=== PATIENT | female | born 1945 | race Two or more races ===

== ENCOUNTER 2018-01-19 12:21 | Outpatient (CLI) | payer OTHER | END 2018-01-19 12:26 | disposition home or self-care (01) | LOC: MAMO-SONO 12:21 | DX: R92.8 Other abnormal and inconclusive findings on diagnostic imaging of breast (principal) ==

== ENCOUNTER 2018-05-17 13:52 | Outpatient (CLI) | payer OTHER | END 2018-05-17 13:59 | disposition home or self-care (01) | LOC: SONOGRAMA 13:52 | DX: E04.1 Nontoxic single thyroid nodule (principal) ==

== ENCOUNTER 2018-07-13 09:56 | Outpatient (CLI) | payer OTHER | END 2018-07-13 09:57 | disposition home or self-care (01) | LOC: SONOGRAMA 09:56 | DX: E04.1 Nontoxic single thyroid nodule (principal) ==

== ENCOUNTER → 2019-01-25 | Outpatient (CLI) | payer OTHER | END | disposition home or self-care (01) | LOC: MAMO-SONO 11:39 | DX: Z12.31 Encounter for screening mammogram for malignant neoplasm of breast (principal); Z87.898 Personal history of other specified conditions; N60.11 Diffuse cystic mastopathy of right breast; N60.12 Diffuse cystic mastopathy of left breast; E04.1 Nontoxic single thyroid nodule ==

== ENCOUNTER 2020-01-12 13:07 | Outpatient (CLI) | payer OTHER | END 2020-01-12 14:00 | disposition home or self-care (01) | LOC: MAMO-SONO 13:07 | DX: Z12.31 Encounter for screening mammogram for malignant neoplasm of breast (principal); Z87.898 Personal history of other specified conditions; N60.11 Diffuse cystic mastopathy of right breast; N60.12 Diffuse cystic mastopathy of left breast ==

== ENCOUNTER 2020-01-24 11:56 | Outpatient (CLI) | payer OTHER | END 2020-01-24 12:55 | disposition home or self-care (01) | LOC: NUCLEAR 11:56 | DX: M81.0 Age-related osteoporosis without current pathological fracture (principal) ==

== ENCOUNTER 2021-01-17 13:52 | Outpatient (CLI) | payer OTHER | END 2021-01-17 13:55 | disposition home or self-care (01) | LOC: MAMO-SONO 13:52 | PROVIDERS: ATTEND Obstetrics & Gynecology | DX: Z12.31 Encounter for screening mammogram for malignant neoplasm of breast (principal); E04.1 Nontoxic single thyroid nodule; N60.11 Diffuse cystic mastopathy of right breast; N60.12 Diffuse cystic mastopathy of left breast; N64.59 Other signs and symptoms in breast ==

== ENCOUNTER 2021-04-19 11:31 | Outpatient (CLI) | payer OTHER | END 2021-04-19 11:41 | disposition home or self-care (01) | LOC: TOM 11:31 | DX: K86.2 Cyst of pancreas (principal); K80.80 Other cholelithiasis without obstruction ==

== ENCOUNTER 2021-08-30 12:45 | Outpatient (CLI) | payer OTHER | END 2021-08-30 14:55 | disposition home or self-care (01) | LOC: RAD 12:45 | PROVIDERS: ATTEND Specialist | DX: R07.89 Other chest pain (principal); Z01.818 Encounter for other preprocedural examination ==

== ENCOUNTER 2022-01-20 10:28 | Outpatient (CLI) | payer OTHER | END 2022-01-20 11:11 | disposition home or self-care (01) | LOC: MAMO-SONO 10:28 | PROVIDERS: ATTEND Obstetrics & Gynecology | DX: N60.11 Diffuse cystic mastopathy of right breast (principal); N60.12 Diffuse cystic mastopathy of left breast ==

== ENCOUNTER 2022-02-27 13:23 | Outpatient (CLI) | payer OTHER | END 2022-02-27 13:25 | disposition home or self-care (01) | LOC: NUCLEAR 13:23 | PROVIDERS: ATTEND Obstetrics & Gynecology | DX: M81.0 Age-related osteoporosis without current pathological fracture (principal) ==

== ENCOUNTER → 2022-07-08 | Outpatient (CLI) | payer OTHER | END | disposition home or self-care (01) | LOC: SONOGRAMA 08:59 | PROVIDERS: ATTEND Obstetrics & Gynecology | DX: N63.20 Unspecified lump in the left breast, unspecified quadrant (principal); N63.10 Unspecified lump in the right breast, unspecified quadrant ==

== ENCOUNTER 2022-08-14 09:21 | Outpatient (CLI) | payer OTHER | END 2022-08-14 09:27 | disposition home or self-care (01) | LOC: SONOGRAMA 09:21 | PROVIDERS: ATTEND Surgery | DX: N60.11 Diffuse cystic mastopathy of right breast (principal); N60.12 Diffuse cystic mastopathy of left breast ==

== ENCOUNTER 2023-02-11 12:22 | Outpatient (CLI) | payer OTHER | END 2023-02-11 12:32 | disposition home or self-care (01) | LOC: MAMO-SONO 12:22 | PROVIDERS: ATTEND Surgery | DX: N60.11 Diffuse cystic mastopathy of right breast (principal); N60.12 Diffuse cystic mastopathy of left breast ==

== ENCOUNTER 2023-03-09 12:52 | Outpatient (CLI) | payer OTHER | END 2023-03-09 13:22 | disposition home or self-care (01) | LOC: SONOGRAMA 12:52 | PROVIDERS: ATTEND Internal Medicine Endocrinology, Diabetes & Metabolism | DX: E04.1 Nontoxic single thyroid nodule (principal) ==

== ENCOUNTER 2024-08-04 08:21 | Outpatient (CLI) | payer OTHER | END 2024-08-04 08:28 | disposition home or self-care (01) | LOC: SONOGRAMA 08:21 | PROVIDERS: ATTEND Obstetrics & Gynecology Gynecology | DX: R74.8 Abnormal levels of other serum enzymes (principal); R10.84 Generalized abdominal pain; R10.2 Pelvic and perineal pain ==

== ENCOUNTER 2025-01-13 10:48 | Outpatient (CLI) | payer OTHER | END 2025-01-13 10:56 | disposition home or self-care (01) | LOC: SONOGRAMA 10:48 | PROVIDERS: ATTEND Neurological Surgery | DX: E04.2 Nontoxic multinodular goiter (principal) ==

== ENCOUNTER 2025-01-17 13:56 | Outpatient (CLI) | payer OTHER | END 2025-01-17 14:06 | disposition home or self-care (01) | LOC: TOM 13:56 | PROVIDERS: ATTEND Internal Medicine Endocrinology, Diabetes & Metabolism | DX: E04.1 Nontoxic single thyroid nodule (principal) ==

== ENCOUNTER 2025-01-19 10:28 | Outpatient (CLI) | payer OTHER | END 2025-01-19 10:29 | disposition home or self-care (01) | LOC: SONOGRAMA 10:28 | PROVIDERS: ATTEND Pathology Anatomic Pathology & Clinical Pathology | DX: D34 Benign neoplasm of thyroid gland (principal); E07.89 Other specified disorders of thyroid; E04.1 Nontoxic single thyroid nodule ==

== ENCOUNTER 2025-04-26 12:33 | Outpatient (CLI) | payer OTHER | END 2025-04-26 12:44 | disposition home or self-care (01) | LOC: RAD 12:33 | DX: S83.501A Sprain of unspecified cruciate ligament of right knee, initial encounter (principal); M99.01 Segmental and somatic dysfunction of cervical region; M99.02 Segmental and somatic dysfunction of thoracic region; M99.03 Segmental and somatic dysfunction of lumbar region; M99.05 Segmental and somatic dysfunction of pelvic region; Z12.31 Encounter for screening mammogram for malignant neoplasm of breast; N60.19 Diffuse cystic mastopathy of unspecified breast; N64.4 Mastodynia; N63.0 Unspecified lump in unspecified breast | CPT/HCPCS: 73721 ==